=== PATIENT | female | born 1965 | race Caucasian/White ===

== ENCOUNTER → 2017-01-16 | Outpatient (REF) | payer OTHER ==
[~2017-01-16] MED LIST: /LEVE75TA PO; IBUP200C10 PO; PERCOCET PO; TYLE325T5 PO
[2017-01-16 16:31] LABS: BASO # 0.1 10^3/uL (0.0-0.2); BASO % 0.7 % (0.0-1.0); EOS # 0.2 10^3/uL (0.0-0.50); EOS % 2.5 % (0.0-3.0); IMMATURE GRANULOCYTE % 0.2 % (0-0); LYMPH # 1.9 10^3/uL (1.5-4.5); LYMPH % 21.1 % (24.0-44.0); MEAN CORPUSCULAR HEMOGLOBIN 30.6 pg (27.0-33.0); MEAN CORPUSCULAR HGB CONC 33.3 g/dl (32.0-36.5); MEAN CORPUSCULAR VOLUME 91.8 fl (80.0-96.0); MONO # 0.5 10^3/uL (0.0-0.8); MONO % 5.3 % (0.0-5.0); NEUTROPHILS # 6.2 10^3/uL (1.8-7.7); NEUTROPHILS % 70.2 % (36.0-66.0); PLATELET COUNT, AUTOMATED 257 10^3/uL (150-450); RED CELL DISTRIBUTION WIDTH 12.6 % (11.5-14.5); WHITE BLOOD COUNT 8.9 10^3/uL (4.0-10.0)
[2017-01-16 16:43] LABS: ALBUMIN 4.2 GM/DL (3.2-5.2); ALBUMIN/GLOBULIN RATIO 1.31 (1.00-1.93); ALKALINE PHOSPHATASE 72 U/L (45-117); ALT/SGPT 21 U/L (12-78); ANION GAP 8 MEQ/L (8-16); AST/SGOT 19 U/L (7-37); BILIRUBIN,TOTAL 0.4 MG/DL (0.2-1.0); BLOOD UREA NITROGEN 18 MG/DL (7-18); CALCIUM LEVEL 10.4 MG/DL (8.5-10.1); CARBON DIOXIDE LEVEL 26 MEQ/L (21-32); CHLORIDE LEVEL 107 MEQ/L (98-107); CHOLESTEROL LEVEL 280 MG/DL (<200); FREE T4 1.05 NG/DL (0.76-1.46); GLOMERULAR FILTRATION RATE > 60.0 (>51); GLUCOSE, FASTING 84 MG/DL (70-105); SODIUM LEVEL 141 MEQ/L (136-145); TOTAL PROTEIN 7.4 GM/DL (6.4-8.2); TRIGLYCERIDES LEVEL 156 MG/DL (<150)
[2017-01-18 09:40] LABS: VITAMIN B12 LEVEL 845 PG/ML
[2017-01-18 09:41] LABS: FOLATE > 24.0 NG/ML
== END ==
LOC: M SFHCADAM 09:00
PROVIDERS: ATTEND Physician Assistant Medical
DX: Z00.00 Encounter for general adult medical examination without abnormal findings (principal); E78.4 Other hyperlipidemia

== ENCOUNTER 2017-03-25 06:52 | Day surgery (SDC) | payer OTHER ==
[2017-03-25] MEDS ORDERED: PROPOFOL 200 MG/20 ML VIAL As Ordered (07:00)
[2017-03-25] MEDS ORDERED: LIDOCAINE 2% INJ 100 MG/5 ML SDV (FOR ANES.) As Ordered (07:00)
[2017-03-25] MEDS: NS 1,000 ML IV (07:08)
== END 2017-03-25 08:16 | disposition home or self-care (01) ==
LOC: M OPP 06:52
DX: Z12.11 Encounter for screening for malignant neoplasm of colon (principal); M19.90 Unspecified osteoarthritis, unspecified site; M41.9 Scoliosis, unspecified; G43.909 Migraine, unspecified, not intractable, without status migrainosus; R56.9 Unspecified convulsions; F17.210 Nicotine dependence, cigarettes, uncomplicated; Z79.899 Other long term (current) drug therapy; Z80.3 Family history of malignant neoplasm of breast
CPT/HCPCS: G0121

== ENCOUNTER → 2017-09-28 | Outpatient (CLI) | payer OTHER | LOC: M RAD 09:07 | DX: N63.10 Unspecified lump in the right breast, unspecified quadrant (principal) ==

== ENCOUNTER → 2017-11-04 | Outpatient (REF) | payer OTHER ==
[2017-11-04 13:43] LABS: BACTERIA, URINE AUTO NEGATIVE (NEGATIVE); MUCUS, URINE SMALL (NEGATIVE); RBC, URINE AUTO 2 /HPF (0-3); SQUAMOUS EPITHELIAL CELL UR AU 0 /HPF (0-6); WBC, URINE AUTO 18 /HPF (0-3)
[2017-11-04 15:52] LABS: CHLAMYDIA DNA AMPLIFICATION NEGATIVE (NEGATIVE); GC DNA AMPLIFICATION NEGATIVE (NEGATIVE)
== END ==
LOC: M LAB REF 13:01
DX: R30.0 Dysuria (principal)

== ENCOUNTER 2018-07-26 14:20 | Inpatient (IN) | payer OTHER ==
[~2018-07-26] VITALS: Ht 157.5 cm; Wt 65.6 kg
[~2018-07-26 14:20] MED LIST changes: -/LEVE75TA PO; +CALC1TAB40 PO; +CLAR10CA3 PO; +CLAR1TAB2 PO; -IBUP200C10 PO; +IBUP200C25 PO; +IRON65TA PO; +KEPP1TAB2 PO; +MELO7.5T7 PO; +MONT10TA2 PO; +MULT1TAB42 PO; +OSTETAB3 PO; +SUMA100T2 PO; +VITA-121 PO; +VITATAB11 PO; +ZONI50CA3 PO; +[UNRECOGNIZED DRUG - CODE] PO
[2018-07-26 15:19] LABS: BASO # 0.1 10^3/uL (0.0-0.2); BASO % 0.5 % (0.0-1.0); EOS # 0.1 10^3/uL (0.0-0.50); EOS % 0.7 % (0.0-3.0); HEMATOCRIT 43.6 % (36.0-47.0); HEMOGLOBIN 14.6 g/dl (12.0-15.5); LYMPH # 1.7 10^3/uL (1.5-4.5); LYMPH % 9.8 % (24.0-44.0); MEAN CORPUSCULAR HEMOGLOBIN 30.7 pg (27.0-33.0); MEAN CORPUSCULAR HGB CONC 33.5 g/dl (32.0-36.5); MEAN CORPUSCULAR VOLUME 91.6 fl (80.0-96.0); MONO % 5.6 % (0.0-5.0); NEUTROPHILS # 14.4 10^3/uL (1.8-7.7); NEUTROPHILS % 82.9 % (36.0-66.0); PLATELET COUNT, AUTOMATED 213 10^3/uL (150-450); RED BLOOD COUNT 4.76 10^6/uL (4.00-5.40); WHITE BLOOD COUNT 17.3 10^3/uL (4.0-10.0)
[2018-07-26 15:49] LABS: ALBUMIN 3.8 GM/DL (3.2-5.2); ALT/SGPT 26 U/L (12-78); BILIRUBIN,DIRECT < 0.1 MG/DL (0.0-0.2); BILIRUBIN,TOTAL 0.2 MG/DL (0.2-1.0); BLOOD UREA NITROGEN 15 MG/DL (7-18); CALCIUM LEVEL 9.6 MG/DL (8.5-10.1); CARBON DIOXIDE LEVEL 23 MEQ/L (21-32); CHLORIDE LEVEL 111 MEQ/L (98-107); CREATININE FOR GFR 1.32 MG/DL (0.55-1.30); GLOMERULAR FILTRATION RATE 45.2 (>51); GLUCOSE, FASTING 92 MG/DL (70-100); LIPASE 437 U/L (73-393); POTASSIUM SERUM 4.8 MEQ/L (3.5-5.1); SODIUM LEVEL 140 MEQ/L (136-145); TOTAL PROTEIN 7.1 GM/DL (6.4-8.2)
[2018-07-26] MEDS ORDERED: NS 1,000 ML IV ONE (17:15)
[2018-07-26] MEDS ORDERED: KETOROLAC 30 MG/ML VIAL (J1885) IV ONE (17:15)
[2018-07-26] MEDS ORDERED: TAMSULOSIN 0.4 MG CAP PO ONE (19:45)
[2018-07-26] MEDS ORDERED: MORPHINE 4 MG/ML 1ML VIAL/SYRINGE (J2270) IV ONE (21:15)
[2018-07-26] MEDS ORDERED: cefTRIAXone SOD 1 GM in D5W MINI-BAG PLUS 50 ML IV SCH (22:00)
[2018-07-26] MEDS ORDERED: MORPHINE 4 MG/ML 1ML VIAL/SYRINGE (J2270) IV PRN (22:00)
[2018-07-26] MEDS ORDERED: LORazepam 2 MG/ML VIAL (J2060) IV PRN (22:00)
[2018-07-26] MEDS ORDERED: ZONISAMIDE 50 MG CAP (ZONEGRAN) PO SCH (22:00)
[2018-07-26] MEDS ORDERED: ONDANSETRON 4MG/2ML VIAL (J2405) IV PRN (22:00)
[2018-07-26] MEDS ORDERED: LORA-674 PO (22:18)
[2018-07-26] MEDS ORDERED: FERR1TAB8 PO (22:18)
[2018-07-26] MEDS ORDERED: RA B1TAB2 PO (22:18)
[2018-07-26] MEDS ORDERED: D-10TAB3 PO (22:18)
[2018-07-26] MEDS ORDERED: VITMTA PO (22:18)
[2018-07-26] MEDS ORDERED: MELO7.5T35 PO (22:18)
--- NOTE | 2018-07-26 22:31 | HPEPDOC ---
General Date of Admission Jul 26, 2018 at 21:58 Date of Service: Jul 26, 2018 Chief Complaint The patient is a 52-year-old female admitted with a reason for visit of Ureteric Colic. Source: Patient, Old records Exam Limitations: No limitations Severity: Moderate History of Present Illness 52 year old female with Epilepsy, seasonal allergies presented to the ED with back pain for 3 days. The pain is located in the right middle to low back , dull aching in character, constantly present, 10/10 in intensity and with intermittent radiation to the right flank. The pain started 3 days ago . SHe was taking motrin for this and it was helping. Today the pain was very severe and the motrin did not help so came to the ED. In the ED She had an elevated WBC and 19 rbcs in urine and creatinine of 1.3 CT abdomen pelvis showed right proximal ureteric stone . Urology was contacted and she will be taken to the OR tomorrow. She is being admitted to the hospitalist service for JACQUELINE, obstructive uropathy due to right ureteric stone. Home Medications Scheduled Ascorbic Acid (Vitamin C with Jessica Hips) 1 Tab Tab, 1 TAB PO DAILY, (Reported) Calcium Carb/Mag Ox/Zinc Sulf (Wpatktt-Cuswfjtjx-Dzxv Tablet) 1 Tab Tab, 1 TAB PO DAILY, (Reported) Cholecalciferol (Vitamin D3) (Vitamin D3) 1,000 Unit Tablet, 1,000 UNIT PO DAILY, (Reported) Ferrous Sulfate (Ferrous Sulfate) 325 Mg Tablet, 325 MG PO DAILY, (Reported) Glucosamine/Chondr Natarajan A Sod (Osteo Bi-Flex Caplet) 1 Tab Tab, 1 TAB PO DAILY, (Reported) Loratadine (Loratadine) 10 Mg Tablet, 10 MG PO DAILY, (Reported) Montelukast Sodium (Montelukast Sodium) 10 Mg Tab, 10 MG PO DAILY, (Reported) Multivitamins (Thera M Plus Tablet) 1 Each Tablet, 1 TAB PO DAILY, (Reported) Vitamin B Complex (Vitamin B Complex) 1 Each Tablet, 1 TAB PO DAILY, (Reported) Zonisamide (Zonisamide) 50 Mg Cap, 150 MG PO QHS, (Reported) Scheduled PRN Meloxicam (Meloxicam) 7.5 Mg Tablet, 7.5 MG PO DAILY PRN for PAIN, (Reported) Sumatriptan Succinate (Sumatriptan Succinate) 100 Mg Tab, 100 MG PO DAILY PRN for MIGRAINE, (Reported) Allergies Coded Allergies: No Known Allergies (Unverified , 03/18/17) Past Medical History Medical History epilepsy, seasonal allergies, iron deficiency Surgical History appendectomy, total hysterectomy Family History Significant Family History: Other (epilesy in sister, mother, maternal aunts.) Social History * Smoker: current smoker Alcohol: Denies Drugs: denies A-FIB/CHADSVASC A-FIB History Current/History of A-Fib/PAF?: No Review of Systems Constitutional: Denies: Chills, Fever, Night Sweats Eyes: Denies: Pain, Vision change ENT: Denies: Head Aches, Ear Pain, Dysphagia Skin: Denies: Rash, Lesions, Breakdown Pulmonary: Denies: Dyspnea, Cough Cardiovascular: Denies: Chest Pain, Palpitations, Orthopnea, Paroxysmal Noc. Dyspnea, Lt Headedness Gastrointestinal: Reports: Abdominal Pain Genitourinary: Denies: Dysuria, Frequency, Incontinence, Retention Hematologic: Denies: Bruising, Bleeding Excessively Musculoskeletal: Reports: Back Pain Physical Examination General Exam: Positive: Alert, Cooperative, Mild Distress Eye Exam: Positive: PERRLA, Conjunctiva & lids normal, EOMI; Negative: Sclera icteric ENT Exam: Positive: Atraumatic, Mucous membr. moist/pink, Pharynx Normal Neck Exam: Positive: Supple; Negative: JVD, thyromegaly Chest Exam: Positive: Clear to auscultation, Normal air movement Heart Exam: Positive: Rate Normal, Regular Rhythm, Normal S1, Normal S2; Negative: Murmurs, Rubs Abdomen Exam: Positive: Normal bowel sounds, Soft, Tenderness (right CVA angle) Extremity Exam: Positive: Normal pulses; Negative: Clubbing, Cyanosis, Edema Skin Exam: Positive: Nl turgor and temperature; Negative: Breakdown, Lesion Vital Signs Vital Signs Date Time Temp Pulse Resp B/P (MAP) Pulse Ox O2 Delivery O2 Flow Rate FiO2 07/26/18 21:34 98.1 69 20 133/70 (91) 97 Room Air Laboratory Data Labs 24H Laboratory Tests 2 07/26/18 15:11: Immature Granulocyte % (Auto) 0.5, White Blood Count 17.3H, Red Blood Count 4.76, Hemoglobin 14.6, Hematocrit 43.6, Mean Corpuscular Volume 91.6, Mean Corpuscular Hemoglobin 30.7, Mean Corpuscular Hemoglobin Concent 33.5, Red Cell Distribution Width 12.5, Platelet Count 213, Neutrophils (%) (Auto) 82.9H, Lymphocytes (%) (Auto) 9.8L, Monocytes (%) (Auto) 5.6H, Eosinophils (%) (Auto) 0.7, Basophils (%) (Auto) 0.5, Neutrophils # (Auto) 14.4H, Lymphocytes # (Auto) 1.7, Monocytes # (Auto) 1.0H, Eosinophils # (Auto) 0.1, Basophils # (Auto) 0.1, Nucleated Red Blood Cells % (auto) 0.0, Anion Gap 6L, Glomerular Filtration Rate 45.2L, Calcium Level 9.6, Aspartate Amino Transf (AST/SGOT) 26, Alanine Garcia otransferase (ALT/SGPT) 26, Alkaline Phosphatase 95, Total Bilirubin 0.2, Direct Bilirubin < 0.1, Total Protein 7.1, Albumin 3.8, Albumin/Globulin Ratio 1.15, Lipase 437H 07/26/18 15:13: Urine Color STRAW, Urine Appearance CLEAR, Urine pH 5.0, Urine Specific [place] 1.009, Urine Protein NEGATIVE, Urine Glucose (UA) NEGATIVE, Urine Ketones NEGATIVE, Urine Blood 1+H, Urine Nitrite NEGATIVE, Urine Bilirubin NEGATIVE, Urine Urobilinogen 0.2, Urine Leukocyte Esterase NEGATIVE, Urine WBC (Auto) 1, Urine RBC (Auto) 19H, Urine Hyaline Casts (Auto) 0, Urine Bacteria (Auto) NEGATIVE, Urine Squamous Epithelial Cells 0, Urine Sperm (Auto) CBC/BMP Laboratory Tests 07/26/18 15:11 Red Blood Count 4.76, Mean Corpuscular Volume 91.6, Mean Corpuscular Hemoglobin 30.7, Mean Corpuscular Hemoglobin Concent 33.5, Red Cell Distribution Width 12.5, Neutrophils (%) (Auto) 82.9 H, Lymphocytes (%) (Auto) 9.8 L, Monocytes (%) (Auto) 5.6 H, Eosinophils (%) (Auto) 0.7, Basophils (%) (Auto) 0.5, Neutrophils # (Auto) 14.4 H, Lymphocytes # (Auto) 1.7, Monocytes # (Auto) 1.0 H, Eosinophils # (Auto) 0.1, Basophils # (Auto) 0.1 Assessment/Plan 52 year old female with Epilepsy, seasonal allergies presented to the ED with back pain for 3 days. The pain is located in the right middle to low back , dull aching in character, constantly present, 10/10 in intensity and with intermittent radiation to the right flank. The pain started 3 days ago . SHe was taking motrin for this and it was helping. Today the pain was very severe and the motrin did not help so came to the ED. In the ED She had an elevated WBC and 19 rbcs in urine and creatinine of 1.3 CT abdomen pelvis showed right proximal ureteric stone . Urology was contacted and she will be taken to the OR tomorrow. She is being admitted to the hospitalist service for JACQUELINE, obstructive uropathy due to right ureteric stone. JACQUELINE due to obstructive uropathy due to right proximal ureteric stone IVF, flomax, OR tomorrow by Urology for relief of obstruction NPO midnight. Dr Ye aware. Ceftriaxone pain control with morphine EKG and CXR. t be reviewed Epilepsy continue home meds Seasonal allergies continue montelukast and loratadine. Plan / VTE VTE Prophylaxis Ordered?: Yes HERB LEWIS MD Jul 26, 2018 22:31
[2018-07-26] MEDS: D5W/0.9% SODIUM CHLORIDE 1,000 ML IV SCH (22:53)
[2018-07-27 02:38] VITALS: BP 118/60
--- NOTE | 2018-07-27 07:45 | REP ---
Chest, single PA view: Comparison is 01/30/2013. The lung fowler are clear. Cardiac size is normal. The anish, mediastinum, skeletal structures are unremarkable. There is no interval change. Impression: Negative single PA view of the chest. Electronically Signed by Sidney Baum MD 07/27/2018 07:37 A
--- NOTE | 2018-07-27 07:46 | SMCUROLCON ---
Urology Consultation General Date of Consultation 07/27/18 Reason For Consultation This patient is seen for Ureteric Colic. History of Present Illness This is a 52 y/o F w/ a PMH significant for epilepsy, who presented to the ED yesterday evening w/ a 3 day history of right flank pain. She notes that the p ain became progressively worse, prompting her visit to the ER. A CT A/P was obtained in the ED and was notable for a 7-8mm obstructing proximal right ureteral stone as well as several stones in the right kidney measuring up to 1.3cm. Due to poor pain control she was admitted. She denies n/v. She denies fevers or chills. She denies dysuria. She has no previous history of kidney stones. Past Medical History Medical History epilepsy Surgical Hstory hysterectomy, appendectomy Medications Current Medications Current Medications Ceftriaxone Sodium 1 gm/ Dextrose 50 ml @ 100 mls/hr Q24H IV Last administered on 07/26/18at 22:53; Start 07/26/18 at 22:00 Dextrose/Sodium Chloride 1,000 ml @ 100 mls/hr Q10H IV Last administered on 07/26/18at 22:53; Start 07/26/18 at 22:00 Ferrous Sulfate (Ferrous Sulfate) 325 mg DAILY PO ; Start 07/27/18 at 09:00 Home Med (Med Rec Complete!) ASDIRECTED XX ; Start 07/26/18 at 22:30; Stop 07/26/18 at 22:30; Status DC Loratadine (Claritin) 10 mg DAILY PO ; Start 07/27/18 at 09:00 Lorazepam (Ativan) 2 mg Q4HP PRN IV seizure; Start 07/26/18 at 22:00 Montelukast Sodium (Singulair) 10 mg DAILY PO ; Start 07/27/18 at 09:00 Morphine Sulfate (Morphine Sulfate Inj) 2 mg Q2HP PRN IV BREAKTHROUGH PAIN Last administered on 07/27/18at 04:52; Start 07/26/18 at 22:00 Ondansetron HCl (ZOFRAN INJection) 4 mg Q6HP PRN IV NAUSEA OR VOMITING; Start 07/26/18 at 22:00 Tamsulosin HCl (Flomax) 0.4 mg DAILY PO ; Start 07/27/18 at 09:00 Zonisamide (Zonegran) 150 mg QHS PO Last administered on 07/26/18at 22:53; Start 07/26/18 at 22:00 Allergies Allergies: Coded Allergies: No Known Allergies (Unverified , 03/18/17) Review of Systems General: Denies: Fatigue, Malaise Constitutional: Denies: Fever, Chills, Sweats, Weakness, Malaise Skin: Denies: Rash, Lesions, Breakdown, Nail Changes Pulmonary: Denies: Dyspnea, Cough Cardiovascular: Denies Chest Pain, Denies Palpitations Genitourinary: Denies: Dysuria, Frequency, Incontinence, Hematuria Musculoskeletal: Reports: Back Pain (right flank pain) Neurological: Denies: Weakness, Numbness, Incoordination, Change in Speech Psych: Reports: Mood Normal; Denies: Anxiety, Depression Physical Examination General Exam: Alert, Cooperative Chest Exam: Normal air movement Heart Exam: Rate Normal, Regular Rhythm Abdomen Exam: Soft; No: Tenderness Skin Exam: Nl turgor and temperature; No: Rash, Breakdown Neuro Exam: Normal Speech Psych Exam: Mental status NL, Mood NL Vital Signs/I&O Vital Signs Date Time Temp Pulse Resp B/P (MAP) Pulse Ox O2 Delivery O2 Flow Rate FiO2 07/27/18 04:52 16 07/27/18 02:38 97.3 79 118/60 (79) 96 07/27/18 02:11 Room Air I&O- Last 24 Hours up to 6 AM 07/27/18 06:00 Intake Total 0 ml Output Total 200 ml Balance -200 ml Laboratory Data 24H Labs Laboratory Tests 2 07/26/18 15:11: Immature Granulocyte % (Auto) 0.5, White Blood Count 17.3H, Red Blood Count 4.76, Hemoglobin 14.6, Hematocrit 43.6, Mean Corpuscular Volume 91.6, Mean Corpuscular Hemoglobin 30.7, Mean Corpuscular Hemoglobin Concent 33.5, Red Cell Distribution Width 12.5, Platelet Count 213, Neutrophils (%) (Auto) 82.9H, Lymphocytes (%) (Auto) 9.8L, Monocytes (%) (Auto) 5.6H, Eosinophils (%) (Auto) 0.7, Basophils (%) (Auto) 0.5, Neutrophils # (Auto) 14.4H, Lymphocytes # (Auto) 1.7, Monocytes # (Auto) 1.0H, Eosinophils # (Auto) 0.1, Basophils # (Auto) 0.1, Nucleated Red Blood Cells % (auto) 0.0, Anion Gap 6L, Glomerular Filtration Rate 45.2L, Calcium Level 9.6, Aspartate Amino Transf (AST/SGOT) 26, Alanine Aminotransferase (ALT/SGPT) 26, Alkaline Phosphatase 95, Total Bilirubin 0.2, Direct Bilirubin < 0.1, Total Protein 7.1, Albumin 3.8, Albumin/Globulin Ratio 1.15, Lipase 437H 07/26/18 15:13: Urine Color STRAW, Urine Appearance CLEAR, Urine pH 5.0, Urine Specific [place] 1.009, Urine Protein NEGATIVE, Urine Glucose (UA) NEGATIVE, Urine Ketones NEGATIVE, Urine Blood 1+H, Urine Nitrite NEGATIVE, Urine Bilirubin NEGATIVE, Urine Urobilinogen 0.2, Urine Leukocyte Esterase NEGATIVE, Urine WBC (Auto) 1, Urine RBC (Auto) 19H, Urine Hyaline Casts (Auto) 0, Urine Bacteria (Auto) NEGATIVE, Urine Squamous Epithelial Cells 0, Urine Sperm (Auto) CBC/BMP Laboratory Tests 07/26/18 15:11 Red Blood Count 4.76, Mean Corpuscular Volume 91.6, Mean Corpuscular Hemoglobin 30.7, Mean Corpuscular Hemoglobin Concent 33.5, Red Cell Distribution Width 12.5, Neutrophils (%) (Auto) 82.9 H, Lymphocytes (%) (Auto) 9.8 L, Monocytes (%) (Auto) 5.6 H, Eosinophils (%) (Auto) 0.7, Basophils (%) (Auto) 0.5, Neutrophils # (Auto) 14.4 H, Lymphocytes # (Auto) 1.7, Monocytes # (Auto) 1.0 H, Eosinophils # (Auto) 0.1, Basophils # (Auto) 0.1 Assessment This is a 52 y/o F w/ a proximal obstructing right ureteral stone and right kidney stones, admitted for poor pain control. Her WBC was elevated to 17.3 and her Cr bumped to 1.3 from a baseline of 0.8. She is afebrile. Her UA appears negative for infection. I recommended taking her to the OR today for cystoscopy, right ureteroscopy w/ laser lithotripsy, and right ureteral stent placement. After a discussion of the risks and benefits, informed consent was signed. Plan - informed consent signed for cystoscopy, right ureteroscopy w/ laser lithotripsy, and right ureteral stent placement - keep NPO - OR later today - assuming pain is better controlled postop she can be discharged home KAYLYNN CLARKE MD Jul 27, 2018 07:45
[2018-07-27 08:00] VITALS: BP 119/71
[2018-07-27] MEDS: D5W/0.9% SODIUM CHLORIDE 1,000 ML IV SCH (08:07)
[2018-07-27 08:12] LABS: BASO # 0.1 10^3/uL (0.0-0.2); BASO % 0.5 % (0.0-1.0); EOS # 0.1 10^3/uL (0.0-0.50); EOS % 1.5 % (0.0-3.0); HEMATOCRIT 38.6 % (36.0-47.0); HEMOGLOBIN 12.7 g/dl (12.0-15.5); LYMPH # 1.6 10^3/uL (1.5-4.5); LYMPH % 17.2 % (24.0-44.0); MEAN CORPUSCULAR HEMOGLOBIN 30.5 pg (27.0-33.0); MEAN CORPUSCULAR HGB CONC 32.9 g/dl (32.0-36.5); MEAN CORPUSCULAR VOLUME 92.6 fl (80.0-96.0); MONO # 0.6 10^3/uL (0.0-0.8); MONO % 6.2 % (0.0-5.0); NEUTROPHILS % 74.3 % (36.0-66.0); PLATELET COUNT, AUTOMATED 177 10^3/uL (150-450); RED BLOOD COUNT 4.17 10^6/uL (4.00-5.40); WHITE BLOOD COUNT 9.4 10^3/uL (4.0-10.0)
[2018-07-27 08:18] LABS: CALCIUM LEVEL 8.5 MG/DL (8.5-10.1); CREATININE FOR GFR 1.32 MG/DL (0.55-1.30); GLOMERULAR FILTRATION RATE 45.2 (>51); POTASSIUM SERUM 4.2 MEQ/L (3.5-5.1)
[2018-07-27] MEDS ORDERED: MONTELUKAST 10 MG TAB PO SCH (09:00)
[2018-07-27] MEDS ORDERED: TAMSULOSIN 0.4 MG CAP PO SCH (09:00)
[2018-07-27] MEDS ORDERED: LORATADINE 10 MG TAB PO SCH (09:00)
[2018-07-27] MEDS ORDERED: FERROUS SULFATE 325MG TAB PO SCH (09:00)
[2018-07-27] MEDS ORDERED: CONRAY-60 60% 50ML VIAL (Q9961) As Ordered ONE (10:50)
[2018-07-27] MEDS ORDERED: fentaNYL 100 MCG/2 ML INJECTION (J3010) As Ordered ONE (10:53)
[2018-07-27] MEDS ORDERED: MIDAZOLAM INJ 2 MG/2 ML VIAL (J2250) As Ordered ONE (10:53)
[2018-07-27] MEDS ORDERED: PROPOFOL 200 MG/20 ML VIAL As Ordered ONE (10:54)
[2018-07-27] MEDS ORDERED: LIDOCAINE 2% INJ 100 MG/5 ML SDV (FOR ANES.) As Ordered ONE (10:56)
[2018-07-27] MEDS ORDERED: ONDANSETRON 4MG/2ML VIAL (J2405) As Ordered ONE (10:57)
[2018-07-27] MEDS ORDERED: dexameTHASONE 4 MG/ML 1ML VIAL (J1100) As Ordered ONE (10:57)
[2018-07-27] MEDS ORDERED: ceFAZolin 2 GM/D5W 50 ML IV BAG (J0690 PER 500MG) As Ordered ONE (11:23)
[2018-07-27] MEDS ORDERED: PHENYLephrine HCL 500 MCG/5 ML (100MCG/ML) SYRINGE (J2370) As Ordered ONE (11:54)
[2018-07-27] MEDS ORDERED: ePHEDrine SULFATE 25 MG/5 ML(5MG/ML) SYRINGE As Ordered ONE (11:54)
[2018-07-27] MEDS ORDERED: PERCOCET 5MG/325MG TAB PO PRN (13:15)
[2018-07-27] MEDS ORDERED: fentaNYL 100 MCG/2 ML INJECTION (J3010) IV PRN (13:15)
[2018-07-27] MEDS ORDERED: MORPHINE 10 MG/ML 1ML VIAL (J2270) IV PRN (13:15)
[2018-07-27] MEDS ORDERED: ONDANSETRON 4MG/2ML VIAL (J2405) IV PRN (13:15)
[2018-07-27] MEDS ORDERED: LR 1,000 ML IV SCH (13:15)
[2018-07-27 13:50] VITALS: BP 111/62
[2018-07-27 14:20] VITALS: BP 112/62
[2018-07-27] MEDS ORDERED: IBUP200C25 PO (14:23)
--- NOTE | 2018-07-27 15:14 | REP ---
RETROGRADE PYELOGRAM: Three views. HISTORY: Stent placement. 12 seconds of fluoroscopy time is reported. FINDINGS: A sequence of three last image hold fluoroscopically obtained spot radiographs of the abdomen document ureteral cannulation, contrast injection, and double pigtail ureteral stent placement. No laterality markers are visible. Electronically Signed by Nikita Trivedi MD 07/27/2018 04:49 P
--- NOTE | 2018-07-27 15:53 | DSES ---
DATE OF ADMISSION: 07/27/2018 DATE OF DISCHARGE: 07/27/2018 PRIMARY CARE PROVIDER: Ava Gomes at [facility] UROLOGIST: Dr. Gilmer Ye PRINCIPAL DIAGNOSES: 1. Right ureteral colic secondary to renal stone. 2. Acute kidney injury. HISTORY: Amalia Calderón is a 52-year-old who previously has been seen by MARY ANN Garcia in the [facility], most recently 01/14/2017. The patient has missed all of her appointments since then. She has a history of a seizure disorder and is followed by Dr. 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 She presented with a renal stone. HOSPITAL COURSE: It looks like the patient was taken to the operating room for the urological procedure, the operative note is not available yet. I think that she was going for laser lithotripsy and right ureteral stent placement. After the procedure, urology felt that she could be discharged home. The patient is eager for discharge, so we will discharge her. Per nursing staff, urology advised just Tylenol or Motrin for analgesics. SIGNIFICANT LABORATORIES TODAY: Initial white count is 17.3, repeat white count is 9.4, hemoglobin 12.7, platelets are 177, electrolytes are unremarkable. Creatinine is 1.3. Baseline creatinine is 0.8. DISPOSITION: The patient is discharged home to followup with Ava Gomes in the [facility] in 1 to [address] Ye of urology per his office. Activity and diet is as tolerated. MEDICATIONS: - over the counter ibuprofen 600 mg of ibuprofen every 6 hours as needed for pain She will continue her home medications, which look to be: - zonisamide 150 mg at bedtime - sumatriptan 100 mg for migraines - Singulair 10 mg daily - loratadine 10 mg daily - over the counter vitamin C, calcium, vitamin D, ferrous sulfate, Osteo Biflex and B complex She looks to be on meloxicam 7.5 mg daily as needed. I have asked her to hold this until repeat lab work can be done in the office for checking her renal function.
--- NOTE | 2018-07-28 07:35 | ECGEPIP ---
[facility] Test Date: 2018-07-27 Pat Name: DONNIE PALOMARES Department: Room: [place] [address] Gender: Female [employer]: : 1965 Requested By: HERB LEWIS Order Number: [id number] Reading MD: Paul Oneill Measurements Intervals [place] Rate: 71 P: 73 MO: 131 QRS: 65 QRSD: 93 T: 40 QT: 387 QTc: 422 Interpretive Statements Normal sinus rhythm Low QRS complex voltage in the limb leads Nonspecific ST-T wave abnormalities Comparison tracing not on file Electronically Signed on 07-28-2018 7:34:44 EDT by Paul Oneill
--- NOTE | 2018-07-28 15:12 | REP ---
NONCONTRAST CT, STONE PROTOCOL: REASON: Right flank pain, hematuria. COMPARISON: 01/30/2013 There are numerable calculi in the right renal pelvis and in multiple calices. There is a 6 mm size calcification in the proximal right ureter. Just distal to that there is a 4 mm size calcification within the proximal ureter and just distal to that, there is an additional 4 mm size calcification in the right ureter. Distal to that there is an additional 5 mm sized intraureteral calcification at the level of the iliac crest. Numerable calcification is seen throughout the right hemipelvis most of which appear vascular and most of which were seen on the prior exam. Due to the close proximity to the distal right ureter, I cannot say for certain whether ir not there are additional intraureteral calculi by this exam. There are no urinary bladder calculi. There are numerable bilateral pelvic phleboliths. There are no left-sided nephroliths. There is mild right-sided hydronephrosis and proximal hydroureter. Limited evaluation of the solid intra-abdominal organs show on gross abnormalities or significant changes from the prior exam. There are no choleliths. Limited evaluation of the pancreas and adrenal glands show no significant changes from the prior exam. There is a low density benign left adrenal gland nodule status quo. Limited evaluation of the bowel loops and their mesenteries show no gross abnormalities. There is no free fluid or free air in the abdomen or pelvis. There is no change in the osseous structures. The lung bases are clear and unchanged. IMPRESSION: Multiple right-sided nephroliths with mild hydronephrosis and perinephric stranding seen in conjunction with multiple right ureteroliths and other potential ureteroliths as described above. Other findings as described above. Electronically Signed by Deangelo Nicolas DO 07/28/2018 04:04 P
--- NOTE | 2018-07-28 15:30 | RO ---
DATE OF PROCEDURE: 07/27/2018 PREPROCEDURE DIAGNOSES: Right kidney and ureteral stones. POSTPROCEDURE DIAGNOSES: Right kidney and ureteral stones. PROCEDURE: Cystoscopy, right ureteroscopy with laser lithotripsy and basket extraction of stones, right retrograde pyelogram with intraoperative interpretation of images, right ureteral stent placement. SURGEON: Gilmer Ye MD NAILER OPERATOR: None. ANESTHESIA: General. OPERATIVE INDICATIONS: This is a 52-year-old female who presented to the emergency room yesterday with a 3-day history of right-sided flank pain, which had become progressively worse. A CAT scan was obtained. It was notable for a 7 mm obstructing proximal ureteral stone as well as additional stones in the right kidney measuring up to 1.2 cm. She was brought to the operative room today for the above-listed procedure. DESCRIPTION OF PROCEDURE: Patient brought to the operating room, and general anesthesia was inducted. Prophylactic antibiotics were infused. She was then placed in dorsal lithotomy position and prepped and draped in the usual sterile fashion. A rigid cystoscope was inserted into the urethral meatus and advanced to the bladder. A guidewire was advanced up the right collecting system. I then went up the right collecting system with a short-semirigid ureteroscope, and no stones were seen within the distal to mid ureter. I then withdrew the short-semirigid ureteroscope and advanced a ureteral access sheath up the right collecting system. I went up the access sheath with the flexible ureteroscope, and within the proximal ureter, the 7-mm stone was seen. The stone was fragmented into smaller pieces using a 272 micron laser fiber. All the fragments were removed using a basket. I then went into the kidney, and there were stones in the lower pole of the kidney measuring up to 1.2 cm. All those stones were fragmented as well using a laser, and then all the fragments were removed using a basket. Of note, there were some additional stone fragments that I could not reach very well with the basket in the lower pole, and these were fragmented into tiny pieces using a dusting setting. Once done, there were no stone fragments remaining inside the kidney that the patient could not pass on her own. A retrograde pyelogram was performed. It was notable for moderate right hydronephrosis, no extravasation. I then withdrew the ureteroscope along with access sheath, and no stones were seen within the ureter. I then utilized the wire to advance a #6-Peruvian x 22-32 cm JJ ureteral stent up to right collecting system. The wire was then removed, and there were adequate curls of the stent in the right renal pelvis and in the bladder. The bladder was emptied of all fluids, and this marked conclusion of procedure. The patient was then taken out of dorsal lithotomy position, awakened from anesthesia, and transferred to recovery room in stable condition ESTIMATED BLOOD LOSS: 5 mL. COMPLICATIONS: None. SPECIMENS: Kidney stone fragments. PLAN: I will schedule the patient to followup in the clinic in approximately 1 or 2 weeks for stent removal. Of note, I will get a KUB prior to removing the stent. JOVANNA
== END 2018-07-27 15:05 | disposition home or self-care (01) | DRG 443 ==
LOC: M ED 14:20 → M ED INP 21:58 → M PED 07-27 02:15 → INTOOBSV 07-27 07:23 → OBSVTOIN 07-27 07:23
PROVIDERS: ADMIT Internal Medicine Nephrology; ATTEND Internal Medicine Nephrology
PROC: 0TC08ZZ Extirpation of Matter from Right Kidney, Via Natural or Artificial Opening Endoscopic (ICD-10-PCS; 2018-07-27)
PROC: 0T768DZ Dilation of Right Ureter with Intraluminal Device, Via Natural or Artificial Opening Endoscopic (ICD-10-PCS; 2018-07-27)
PROC: 0TC68ZZ Extirpation of Matter from Right Ureter, Via Natural or Artificial Opening Endoscopic (ICD-10-PCS; principal; 2018-07-27 13:30)
DX: N13.2 Hydronephrosis with renal and ureteral calculous obstruction (principal); N17.9 Acute kidney failure, unspecified; G40.909 Epilepsy, unspecified, not intractable, without status epilepticus; J30.2 Other seasonal allergic rhinitis; Z79.899 Other long term (current) drug therapy

== ENCOUNTER → 2018-08-04 | Outpatient (REF) | payer OTHER ==
[~2018-08-04] MED LIST changes: +D-10TAB3 PO; +FERR1TAB8 PO; +LORA-674 PO; +MELO7.5T35 PO; +RA B1TAB2 PO; +VITMTA PO
[2018-08-04 17:44] LABS: BASO # 0.1 10^3/uL (0.0-0.2); BASO % 0.7 % (0.0-1.0); EOS # 0.4 10^3/uL (0.0-0.50); EOS % 3.7 % (0.0-3.0); HEMOGLOBIN 14.7 g/dl (12.0-15.5); LYMPH # 2.6 10^3/uL (1.5-4.5); LYMPH % 21.8 % (24.0-44.0); MEAN CORPUSCULAR HEMOGLOBIN 30.9 pg (27.0-33.0); MEAN CORPUSCULAR HGB CONC 33.4 g/dl (32.0-36.5); MEAN CORPUSCULAR VOLUME 92.6 fl (80.0-96.0); MONO # 0.7 10^3/uL (0.0-0.8); MONO % 5.9 % (0.0-5.0); NEUTROPHILS # 7.9 10^3/uL (1.8-7.7); NEUTROPHILS % 67.5 % (36.0-66.0); PLATELET COUNT, AUTOMATED 296 10^3/uL (150-450); RED BLOOD COUNT 4.75 10^6/uL (4.00-5.40); WHITE BLOOD COUNT 11.8 10^3/uL (4.0-10.0)
[2018-08-04 17:55] LABS: ALBUMIN 3.8 GM/DL (3.2-5.2); BILIRUBIN,TOTAL 0.4 MG/DL (0.2-1.0); CALCIUM LEVEL 9.5 MG/DL (8.5-10.1); CHOLESTEROL RISK RATIO 4.959 (<5); CREATININE FOR GFR 1.23 MG/DL (0.55-1.30); POTASSIUM SERUM 4.1 MEQ/L (3.5-5.1); THYROID STIMULATING HORMONE 1.77 uIU/ML (0.358-3.740); TOTAL PROTEIN 7.1 GM/DL (6.4-8.2)
== END ==
LOC: M SFHCADAM 14:37
PROVIDERS: ATTEND Physician Assistant Medical
DX: Z00.00 Encounter for general adult medical examination without abnormal findings (principal); E78.49 Other hyperlipidemia

== ENCOUNTER → 2018-08-12 | Outpatient (CLI) | payer OTHER ==
--- NOTE | 2018-08-12 09:10 | REP ---
Clinical: Kidney stone. Technique: Single supine view of the abdomen and pelvis. Comparison: None. Findings: Right ureteral stent is identified in satisfactory position. Multiple right renal calculi are identified and possible right ureteral calculi noted. Calcifications within the pelvis may in part represent phleboliths. The bowel gas pattern is nonspecific. Impression: Right ureteral stent. Continued evidence for right intrarenal calculi and possible right ureteral calculi Electronically Signed by Rodolfo Silverio MD 08/12/2018 09:02 A
== END ==
LOC: M SMT 08:29
PROVIDERS: ATTEND Urology
DX: N20.0 Calculus of kidney (principal)

== ENCOUNTER → 2018-09-30 | Outpatient (CLI) | payer OTHER ==
[~2018-09-30] MED LIST changes: +ZONI50CA11 PO; -ZONI50CA3 PO
--- NOTE | 2018-09-30 13:57 | REP ---
REASON FOR EXAM: Renal disease. PRIORS: None. Multiple ultrasonographic images of the right kidney show the right kidney to measure 11.1 x 4.9 x 4.1 cm. The renal cortical echoes are mildly diffusely increased, however, there is preservation of corticomedullary differentiation. In the lower pole of the right kidney there is a tiny echogenic focus measuring 5 mm. This does not cast an acoustic shadow. There are no cystic or solid masses. There is no hydronephrosis. Multiple ultrasonographic images of the left kidney show the left kidney to measure 10.2 x 4.6 x 4.6 cm. The renal cortical echoes are mildly diffusely increased, however, the cortical medullary differentiation is preserved. There no cystic or solid masses. There is no hydronephrosis. Imaging of the urinary bladder was obtained solely for the purpose of assessing uro-jet phenomena at the UV junction. Color Doppler imaging shows UV junction uro-jet phenomena bilaterally. Grossly there is no urinary bladder abnormality. IMPRESSION: Echogenic focus seen inferior pole right kidney possibly reflecting non-shadowing calculi. Consider noncontrast enhanced stone protocol CT if clinically relevant. Mildly increased renal cortical echoes as described above consistent with medical renal disease. Electronically Signed by Deangelo Nicolas DO 09/30/2018 02:21 P
== END ==
LOC: M RAD 11:02
PROVIDERS: ATTEND Physician Assistant Medical
DX: N18.3 Chronic kidney disease, stage 3 (moderate) (principal)

== ENCOUNTER → 2018-10-28 | Outpatient (REF) | payer OTHER ==
[~2018-10-28] MED LIST changes: -ZONI50CA11 PO; +ZONI50CA3 PO
[2018-10-28 13:15] LABS: BASO # 0.1 10^3/uL (0.0-0.2); BASO % 0.8 % (0.0-1.0); EOS # 0.2 10^3/uL (0.0-0.5); EOS % 2.1 % (0.0-3.0); HEMATOCRIT 45.5 % (36.0-47.0); HEMOGLOBIN 15.1 g/dl (12.0-15.5); LYMPH # 3.7 10^3/uL (1.5-5.0); MEAN CORPUSCULAR HEMOGLOBIN 30.8 pg (27.0-33.0); MEAN CORPUSCULAR HGB CONC 33.2 g/dl (32.0-36.5); MEAN CORPUSCULAR VOLUME 92.7 fl (80.0-96.0); MONO # 0.8 10^3/uL (0.0-0.8); MONO % 6.9 % (0.0-5.0); NEUTROPHILS # 6.1 10^3/uL (1.5-8.5); NEUTROPHILS % 55.8 % (36.0-66.0); PLATELET COUNT, AUTOMATED 260 10^3/uL (150-450); RED BLOOD COUNT 4.91 10^6/uL (4.00-5.40)
[2018-10-28 13:24] LABS: ALBUMIN 4.5 GM/DL (3.2-5.2); BILIRUBIN,TOTAL 0.3 MG/DL (0.2-1.0); CALCIUM LEVEL 10.1 MG/DL (8.5-10.1); CHOLESTEROL RISK RATIO 5.135 (<5); CREATININE FOR GFR 1.16 MG/DL (0.55-1.30); GLOMERULAR FILTRATION RATE 52.4 (>51); TOTAL PROTEIN 7.1 GM/DL (6.4-8.2)
== END ==
LOC: M LABNEURO 09:04
PROVIDERS: ATTEND Psychiatry & Neurology Neurology
DX: R56.9 Unspecified convulsions (principal)

== ENCOUNTER → 2019-02-17 | Outpatient (CLI) | payer OTHER ==
[~2019-02-17] MED LIST changes: +ZONI50CA11 PO; -ZONI50CA3 PO
--- NOTE | 2019-02-17 12:21 | REPPI ---
KUB ABDOMEN AND PELVIS: KUB films of the abdomen and pelvis performed and compared to a prior study of 08/12/2018. Previously noted calculi in the lower pole of the right kidney has decreased in size and number. A calcification is seen at that location measuring 7.4 mm. Punctate calcification is seen just superior to that. There are basket calcifications and phleboliths again seen in the pelvis unchanged. Bowel gas pattern is normal. There is curvature of the thoracolumbar spine convex to the right. IMPRESSION: Calculi lower pole right kidney have decreased in size and number as discussed above. Electronically Signed by Sidney Shankar MD 02/18/2019 03:17 P
== END ==
LOC: M PLALAB 09:20
PROVIDERS: ATTEND Nurse Practitioner Family
DX: N20.0 Calculus of kidney (principal)

== ENCOUNTER 2019-11-13 02:36 | Emergency (ER) | payer OTHER ==
[~2019-11-13] VITALS: Ht 154.9 cm; Wt 65.9 kg
[~2019-11-13 02:36] MED LIST changes: -MONT10TA2 PO; +MONT10TA4 PO
[2019-11-13] MEDS ORDERED: MELO7.5T35 (02:51)
[2019-11-13] MEDS ORDERED: LAMO100T3 (02:51)
[2019-11-13] MEDS ORDERED: ACETAMINOPHEN TAB 650MG DOSE (2X325MG) PO ONE (03:15)
[2019-11-13] MEDS ORDERED: ONDANSETRON 4 MG ORAL DISINTEGRATING TAB PO ONE (03:15)
--- NOTE | 2019-11-13 03:38 | REPVR ---
PROCEDURE INFORMATION: Exam: CT Head Without Contrast Exam date and time: 11/13/2019 3:22 AM Age: 53 years old Clinical indication: Pain; Headache; Additional info: Blunt trauma TECHNIQUE: Imaging protocol: Computed tomography of the head without contrast. Radiation optimization: All CT scans at this facility use at least one of these dose optimization techniques: automated exposure control; mA and/or kV adjustment per patient size (includes targeted exams where dose is matched to clinical indication); or iterative reconstruction. COMPARISON: CT Head without contrast 01/30/2013 4:57 PM FINDINGS: Brain: Normal. No hemorrhage. Unremarkable white matter. No mass effect. Cerebral ventricles: No ventriculomegaly. Bones/joints: Unremarkable. No acute fracture. Paranasal sinuses: Visualized sinuses are unremarkable. No fluid levels. Mastoid air cells: Visualized mastoid air cells are well aerated. Soft tissues: Unremarkable. IMPRESSION: No acute intracranial abnormality. Electronically signed by: Fredy Beal On 11/13/2019 03:38:17 AM
[2019-11-13 04:30] VITALS: BP 124/73
== END 2019-11-13 04:37 | disposition home or self-care (01) ==
LOC: M ED 02:36
DX: S06.0X9A Concussion with loss of consciousness of unspecified duration, initial encounter (principal); W22.8XXA Striking against or struck by other objects, initial encounter; Y92.89 Other specified places as the place of occurrence of the external cause; Y93.89 Activity, other specified; Y99.0 Civilian activity done for income or pay; G40.909 Epilepsy, unspecified, not intractable, without status epilepticus; F17.200 Nicotine dependence, unspecified, uncomplicated; Z79.899 Other long term (current) drug therapy
CPT/HCPCS: 70450; 99284; Q0162

== ENCOUNTER → 2020-03-04 | Outpatient (CLI) | payer OTHER ==
[~2020-03-04] MED LIST changes: +LAMO100T3; +MELO7.5T35; +MONT10TA10 PO; -MONT10TA4 PO
--- NOTE | 2020-03-04 09:00 | REPPI ---
INDICATION: N20.0 RENAL LITHIASIS COMPARISON: 02/17/2019 TECHNIQUE: Supine view of the abdomen and pelvis. FINDINGS: Evaluation is somewhat limited although right intrarenal calculi are again suspected. Calcifications in the pelvis are stable/chronic and consistent with phleboliths and vascular calcifications. Bowel gas pattern is nonspecific. Skeletal structures are intact. No foreign body. No obvious organomegaly. IMPRESSION: Nonobstructing right renal calculi. Further evaluation of the urinary tract system is limited due to overlying bowel gas. <Electronically signed by Rodolfo Silverio > 03/04/20 [id number]
== END ==
LOC: M PLAIMG 08:30
PROVIDERS: ATTEND Nurse Practitioner Family
DX: N20.0 Calculus of kidney (principal)

== ENCOUNTER → 2021-03-27 | Outpatient (CLI) | payer OTHER ==
[~2021-03-27] MED LIST changes: -MONT10TA10 PO; +MONT10TA97 PO
[2021-03-27 16:21] LABS: RHEUMATOID FACTOR QUANT < 10.0 IU/ML (<15.0)
[2021-03-27 17:08] LABS: VITAMIN B12 LEVEL 1446 PG/ML
[2021-03-27 17:09] LABS: FOLATE > 24.0 NG/ML
== END ==
LOC: M LAB 14:37
PROVIDERS: ATTEND Psychiatry & Neurology Neurology
DX: R56.9 Unspecified convulsions (principal); R41.3 Other amnesia

== ENCOUNTER → 2021-04-04 | Outpatient (CLI) | payer OTHER | LOC: M WHC 08:17 | PROVIDERS: ATTEND Pediatrics | DX: Z12.31 Encounter for screening mammogram for malignant neoplasm of breast (principal); M85.851 Other specified disorders of bone density and structure, right thigh; M85.852 Other specified disorders of bone density and structure, left thigh ==

== ENCOUNTER → 2021-11-11 | Outpatient (CLI) | payer OTHER | LOC: M RAD 08:17 | PROVIDERS: ATTEND Pediatrics | DX: R74.01 Elevation of levels of liver transaminase levels (principal); K76.89 Other specified diseases of liver; K80.20 Calculus of gallbladder without cholecystitis without obstruction; N20.0 Calculus of kidney ==

== ENCOUNTER → 2022-01-12 | Outpatient (REF) | payer OTHER ==
[2022-01-12 17:47] LABS: FERRITIN 508.5 NG/ML (7.3-270.7)
[2022-01-12 17:49] LABS: ALBUMIN 4.1 G/DL (3.2-5.2); BILIRUBIN,DIRECT 0.2 MG/DL (<0.4); BILIRUBIN,TOTAL 0.6 MG/DL (0.3-1.2)
== END ==
LOC: M LAB REF 16:19
PROVIDERS: ATTEND Pediatrics
DX: R74.01 Elevation of levels of liver transaminase levels (principal); R77.8 Other specified abnormalities of plasma proteins

== ENCOUNTER → 2022-03-12 | Outpatient (CLI) | payer OTHER | LOC: M RAD 10:44 | PROVIDERS: ATTEND Physician Assistant | DX: N20.0 Calculus of kidney (principal); N28.1 Cyst of kidney, acquired ==

== ENCOUNTER → 2022-04-06 | Outpatient (CLI) | payer OTHER ==
[2022-04-06 08:59] LABS: BASO # 0.1 10^3/uL (0.0-0.2); BASO % 0.8 % (0.0-1.0); EOS # 0.2 10^3/uL (0.0-0.5); EOS % 1.9 % (0.0-3.0); HEMATOCRIT 45.5 % (36.0-47.0); HEMOGLOBIN 14.9 g/dl (12.0-15.5); LYMPH # 1.8 10^3/uL (1.5-5.0); LYMPH % 21.2 % (24.0-44.0); MEAN CORPUSCULAR HEMOGLOBIN 30.2 pg (27.0-33.0); MEAN CORPUSCULAR HGB CONC 32.7 g/dl (32.0-36.5); MEAN CORPUSCULAR VOLUME 92.3 fl (80.0-96.0); MONO # 0.5 10^3/uL (0.0-0.8); MONO % 5.7 % (2.0-8.0); PLATELET COUNT, AUTOMATED 210 10^3/uL (150-450); RED BLOOD COUNT 4.93 10^6/uL (4.00-5.40); WHITE BLOOD COUNT 8.5 10^3/uL (4.0-10.0)
[2022-04-06 09:06] LABS: APPEARANCE, URINE HAZY (CLEAR); BACTERIA, URINE AUTO NEGATIVE (NEGATIVE); BILIRUBIN, URINE AUTO NEGATIVE (NEGATIVE); BLOOD, URINE BLOOD NEGATIVE (NEGATIVE); COLOR, URINE YELLOW (YELLOW); GLUCOSE, URINE (UA) AUTO NEGATIVE (NEGATIVE); KETONE, URINE AUTO NEGATIVE (NEGATIVE); LEUKOCYTE ESTERASE, URINE AUTO NEGATIVE (NEGATIVE); NITRITE, URINE AUTO NEGATIVE (NEGATIVE); PROTEIN, URINE AUTO NEGATIVE (NEGATIVE); RBC, URINE AUTO 5 /HPF (0-3); SPECIFIC GRAVITY URINE AUTO 1.009 (1.002-1.035); SQUAMOUS EPITHELIAL CELL UR AU 1 /HPF (0-6); UROBILINOGEN, URINE AUTO 0.2 mg/dL (0.0-2.0); WBC, URINE AUTO 3 /HPF (0-3)
[2022-04-06 09:20] LABS: BLOOD UREA NITROGEN 14 MG/DL (9-23); CALCIUM LEVEL 9.8 MG/DL (8.5-10.1); CARBON DIOXIDE LEVEL 26 MMOL/L (20-31); CHLORIDE LEVEL 108 MMOL/L (98-107); CREATININE FOR GFR 0.84 MG/DL (0.55-1.30); GLOMERULAR FILTRATION RATE > 60.0 (>51); GLUCOSE, FASTING 104 MG/DL (60-100); POTASSIUM SERUM 4.6 MMOL/L (3.5-5.1); SODIUM LEVEL 141 MMOL/L (136-145)
== END ==
LOC: M RAD 08:05
PROVIDERS: ATTEND Physician Assistant
DX: Z01.818 Encounter for other preprocedural examination (principal); R94.31 Abnormal electrocardiogram [ECG] [EKG]

== ENCOUNTER → 2022-04-10 | Outpatient (CLI) | payer OTHER ==
[~2022-04-10] MED LIST changes: +ATOR40TA75 PO; +CALC1TAB63 PO; +CRAN200C PO; +D 50CAP3 PO; -LAMO100T3; +LAMO100T3 PO; +LAMO25TA4 PO; -MELO7.5T35; +OXYB10TA23 PO; +VITA100024 PO; +VITA200016 PO; +ZONI50CA PO; +ZYRT10TA12 PO; +[UNRECOGNIZED DRUG - CODE] PO
[2022-04-10 10:37] LABS: APPEARANCE, URINE CLOUDY (CLEAR); BACTERIA, URINE AUTO NEGATIVE (NEGATIVE); BILIRUBIN, URINE AUTO NEGATIVE (NEGATIVE); BLOOD, URINE BLOOD NEGATIVE (NEGATIVE); CALCIUM OXALATE CRYSTALS LARGE; COLOR, URINE AMBER (YELLOW); GLUCOSE, URINE (UA) AUTO NEGATIVE (NEGATIVE); KETONE, URINE AUTO NEGATIVE (NEGATIVE); LEUKOCYTE ESTERASE, URINE AUTO 2+ (NEGATIVE); MUCUS, URINE SMALL (NEGATIVE); NITRITE, URINE AUTO NEGATIVE (NEGATIVE); PROTEIN, URINE AUTO NEGATIVE (NEGATIVE); RBC, URINE AUTO 21 /HPF (0-3); SQUAMOUS EPITHELIAL CELL UR AU 1 /HPF (0-6); WBC, URINE AUTO 29 /HPF (0-3)
== END ==
LOC: M LAB 09:20
PROVIDERS: ATTEND Physician Assistant
DX: Z01.818 Encounter for other preprocedural examination (principal)

== ENCOUNTER → 2022-04-13 | Outpatient (CLI) | payer OTHER | LOC: M LABSMTC 08:13 | PROVIDERS: ATTEND Anesthesiology | DX: Z01.812 Encounter for preprocedural laboratory examination (principal) ==

== ENCOUNTER 2022-04-16 07:00 | Day surgery (SDC) | payer OTHER ==
[~2022-04-16] VITALS: Ht 152.4 cm; Wt 72.8 kg
[~2022-04-16 07:00] MED LIST changes: +ceFAZolin SOD 2 GM in IV 1 EA IV ONE
[2022-04-16] MEDS ORDERED: LR 1,000 ML IV SCH (08:30)
[2022-04-16] MEDS ORDERED: LIDOCAINE 2% 100MG/5ML SDV (FOR ANES.) As Ordered ONE (08:46)
[2022-04-16] MEDS ORDERED: propofoL 200 MG/20 ML VIAL As Ordered ONE (08:46)
[2022-04-16] MEDS ORDERED: ACETAMINOPHEN 1000MG 100ML IV BAG As Ordered ONE (09:45)
[2022-04-16] MEDS ORDERED: FLOM0.4C39 PO (09:49)
[2022-04-16] MEDS ORDERED: PERC5TAB12 PO (09:49)
[2022-04-16] MEDS ORDERED: ePHEDrine SULFATE 25 MG/5 ML(5MG/ML) SYRINGE As Ordered ONE (09:50)
[2022-04-16] MEDS ORDERED: ONDANSETRON 4MG 2ML VIAL As Ordered ONE (09:52)
[2022-04-16 10:23] VITALS: BP 122/74
== END 2022-04-16 11:05 | disposition home or self-care (01) ==
LOC: M SDC 07:00
PROVIDERS: ATTEND Urology
DX: N20.0 Calculus of kidney (principal); E78.5 Hyperlipidemia, unspecified; G43.909 Migraine, unspecified, not intractable, without status migrainosus; G40.909 Epilepsy, unspecified, not intractable, without status epilepticus; Z79.899 Other long term (current) drug therapy; F17.210 Nicotine dependence, cigarettes, uncomplicated
CPT/HCPCS: 50590; 74018; J0131; J0690; J2405

== ENCOUNTER 2022-04-30 06:20 | Day surgery (SDC) | payer OTHER ==
[~2022-04-30] VITALS: Ht 152.4 cm; Wt 72.8 kg
[~2022-04-30 06:20] MED LIST changes: +FLOM0.4C39 PO; +PERC5TAB12 PO
[2022-04-30] MEDS ORDERED: fentaNYL 100 MCG/2 ML INJECTION As Ordered ONE (06:53)
[2022-04-30] MEDS ORDERED: MIDAZOLAM INJ 2MG/2ML VIAL As Ordered ONE (06:53)
[2022-04-30] MEDS ORDERED: ONDANSETRON 4MG 2ML VIAL As Ordered ONE (07:15)
[2022-04-30] MEDS ORDERED: LIDOCAINE 2% 100MG/5ML SDV (FOR ANES.) As Ordered ONE (07:15)
[2022-04-30] MEDS ORDERED: propofoL 200 MG/20 ML VIAL As Ordered ONE (07:15)
[2022-04-30] MEDS ORDERED: ACETAMINOPHEN 1000MG 100ML IV BAG As Ordered ONE (07:41)
[2022-04-30] MEDS ORDERED: PERC5TAB12 PO (07:47)
[2022-04-30] MEDS ORDERED: ePHEDrine SULFATE 25 MG/5 ML(5MG/ML) SYRINGE As Ordered ONE (07:52)
[2022-04-30 08:45] VITALS: BP 120/76
== END 2022-04-30 08:58 | disposition home or self-care (01) ==
LOC: M SDC 06:20
PROVIDERS: ATTEND Urology
DX: N20.0 Calculus of kidney (principal); E78.5 Hyperlipidemia, unspecified; G40.909 Epilepsy, unspecified, not intractable, without status epilepticus; M41.9 Scoliosis, unspecified; J30.2 Other seasonal allergic rhinitis; F17.210 Nicotine dependence, cigarettes, uncomplicated; Z79.899 Other long term (current) drug therapy
CPT/HCPCS: 50590; 74018; J0131; J0690; J2250; J2405; J3010

== ENCOUNTER → 2022-05-12 | Outpatient (CLI) | payer OTHER ==
[~2022-05-12] MED LIST changes: -ceFAZolin SOD 2 GM in IV 1 EA IV ONE
== END ==
LOC: M RAD 12:04
PROVIDERS: ATTEND Urology
DX: N20.0 Calculus of kidney (principal)

== ENCOUNTER → 2022-05-15 | Outpatient (REF) | payer OTHER ==
[2022-05-15 16:55] LABS: ALBUMIN 4.1 G/DL (3.2-5.2); ALKALINE PHOSPHATASE 126 U/L (46-116); ALT/SGPT 40 U/L (7.0-40); AST/SGOT 29 U/L (<34); BILIRUBIN,TOTAL 0.5 MG/DL (0.3-1.2); BLOOD UREA NITROGEN 13 MG/DL (9-23); CALCIUM LEVEL 9.7 MG/DL (8.5-10.1); CARBON DIOXIDE LEVEL 28 MMOL/L (20-31); CHLORIDE LEVEL 107 MMOL/L (98-107); CHOLESTEROL LEVEL 165 MG/DL (<200); CHOLESTEROL RISK RATIO 2.59 (<5); CREATININE FOR GFR 0.97 MG/DL (0.55-1.30); GLOMERULAR FILTRATION RATE > 60.0 (>51); GLUCOSE, FASTING 91 MG/DL (60-100); HDL CHOLESTEROL 63.5 MG/DL (>40); LDL CHOLESTEROL 83.5 MG/DL (<100); NON-HDL-C 101.5 MG/DL; POTASSIUM SERUM 4.7 MMOL/L (3.5-5.1); SODIUM LEVEL 141 MMOL/L (136-145); TRIGLYCERIDES LEVEL 90 MG/DL (<150)
[2022-05-15 16:58] LABS: FERRITIN 492.9 NG/ML (7.3-270.7)
[2022-05-15 17:14] LABS: HEPATITIS B SURFACE ANTIGEN NEGATIVE (NEGATIVE)
== END ==
LOC: M LAB REF 15:59
PROVIDERS: ATTEND Pediatrics
DX: R77.8 Other specified abnormalities of plasma proteins (principal); E78.5 Hyperlipidemia, unspecified; R74.01 Elevation of levels of liver transaminase levels; N20.0 Calculus of kidney

== ENCOUNTER → 2022-09-18 | Outpatient (CLI) | payer OTHER | LOC: M RAD 09:31 | PROVIDERS: ATTEND Pediatrics | DX: Z12.2 Encounter for screening for malignant neoplasm of respiratory organs (principal); R91.8 Other nonspecific abnormal finding of lung field ==

== ENCOUNTER → 2022-11-13 | Outpatient (CLI) | payer OTHER ==
[~2022-11-13] MED LIST changes: +LORA-1041 PO; -LORA-674 PO
== END ==
LOC: M RAD 08:10
PROVIDERS: ATTEND Physician Assistant
DX: N20.0 Calculus of kidney (principal)

== ENCOUNTER → 2022-11-16 | Outpatient (REF) | payer MEDICAID, OTHER ==
[2022-11-16 18:15] LABS: APPEARANCE, URINE CLOUDY (CLEAR); BACTERIA, URINE AUTO 3+ (NEGATIVE); BILIRUBIN, URINE AUTO NEGATIVE (NEGATIVE); BLOOD, URINE BLOOD 2+ (NEGATIVE); CALCIUM OXALATE CRYSTALS SMALL; COLOR, URINE AMBER (YELLOW); GLUCOSE, URINE (UA) AUTO NEGATIVE (NEGATIVE); KETONE, URINE AUTO NEGATIVE (NEGATIVE); LEUKOCYTE ESTERASE, URINE AUTO 3+ (NEGATIVE); NITRITE, URINE AUTO POSITIVE (NEGATIVE); PROTEIN, URINE AUTO 1+ mg/dL (NEGATIVE); RBC, URINE AUTO 40 /HPF (0-3); SPECIFIC GRAVITY URINE AUTO 1.014 (1.002-1.035); SQUAMOUS EPITHELIAL CELL UR AU 0 /HPF (0-6); UROBILINOGEN, URINE AUTO 0.2 mg/dL (0.0-2.0); WBC, URINE AUTO 175 /HPF (0-3)
== END ==
LOC: M SMT 17:02
PROVIDERS: ATTEND Physician Assistant
DX: R30.0 Dysuria (principal)

== ENCOUNTER → 2022-12-14 | Outpatient (CLI) | payer OTHER | LOC: M WHC 08:53 | PROVIDERS: ATTEND Pediatrics | DX: Z12.31 Encounter for screening mammogram for malignant neoplasm of breast (principal); Z80.3 Family history of malignant neoplasm of breast; R92.333 Mammographic heterogeneous density, bilateral breasts ==

== ENCOUNTER 2022-12-21 21:53 | Emergency (ER) | payer OTHER ==
[~2022-12-21] VITALS: Ht 152.4 cm; Wt 70.0 kg
[2022-12-21 22:20] VITALS: BP 146/74; TEMP 98.8; O2SAT 99
[2022-12-21 22:26] LABS: BASO # 0.1 10^3/uL (0.0-0.2); BASO % 0.7 % (0.0-1.0); EOS # 0.2 10^3/uL (0.0-0.5); EOS % 1.6 % (0.0-3.0); HEMATOCRIT 39.6 % (36.0-47.0); HEMOGLOBIN 13.4 g/dl (12.0-15.5); LYMPH # 2.4 10^3/uL (1.5-5.0); LYMPH % 19.7 % (24.0-44.0); MEAN CORPUSCULAR HEMOGLOBIN 30.9 pg (27.0-33.0); MEAN CORPUSCULAR HGB CONC 33.8 g/dl (32.0-36.5); MEAN CORPUSCULAR VOLUME 91.5 fl (80.0-96.0); MONO # 0.6 10^3/uL (0.0-0.8); MONO % 4.9 % (2.0-8.0); NEUTROPHILS # 8.8 10^3/uL (1.5-8.5); NEUTROPHILS % 72.8 % (36.0-66.0); PLATELET COUNT, AUTOMATED 220 10^3/uL (150-450); RED BLOOD COUNT 4.33 10^6/uL (4.00-5.40); WHITE BLOOD COUNT 12.1 10^3/uL (4.0-10.0)
[2022-12-21 22:45] LABS: LIPASE 31 U/L (12-53)
[2022-12-21 22:47] LABS: ALBUMIN 4.1 G/DL (3.2-5.2); ALKALINE PHOSPHATASE 95 U/L (46-116); ALT/SGPT 46 U/L (7.0-40); AST/SGOT 26 U/L (<34); BILIRUBIN,DIRECT 0.2 MG/DL (<0.4); BILIRUBIN,TOTAL 0.6 MG/DL (0.3-1.2); BLOOD UREA NITROGEN 14 MG/DL (9-23); CALCIUM LEVEL 9.5 MG/DL (8.5-10.1); CARBON DIOXIDE LEVEL 26 MMOL/L (20-31); CHLORIDE LEVEL 106 MMOL/L (98-107); CK-MB VALUE MASS < 1.0 NG/ML (<3.6); CPK CREATINE PHOSPHOKINASE 130 U/L (34-145); CREATININE FOR GFR 0.94 MG/DL (0.55-1.30); GLOMERULAR FILTRATION RATE > 60.0 (>51); GLUCOSE, FASTING 92 MG/DL (60-100); MB/CK RELATIVE INDEX 0.76 (< OR =4); POTASSIUM SERUM 3.9 MMOL/L (3.5-5.1); SODIUM LEVEL 140 MMOL/L (136-145); TOTAL PROTEIN 6.8 G/DL (5.7-8.2)
[2022-12-21] MEDS ORDERED: KETOROLAC 60MG 2ML VIAL IM ONE (23:10)
[2022-12-21] MEDS ORDERED: IBUP-1022 PO (23:19)
== END 2022-12-22 | disposition home or self-care (01) ==
LOC: EDBD 21:53 → M ED 21:53
DX: R07.9 Chest pain, unspecified (principal); E78.5 Hyperlipidemia, unspecified; I10 Essential (primary) hypertension; G40.909 Epilepsy, unspecified, not intractable, without status epilepticus; F17.200 Nicotine dependence, unspecified, uncomplicated; Z79.02 Long term (current) use of antithrombotics/antiplatelets; Z79.83 Long term (current) use of bisphosphonates; Z79.810 Long term (current) use of selective estrogen receptor modulators (SERMs); Z79.899 Other long term (current) drug therapy
CPT/HCPCS: 71045; 80048; 80076; 82550; 82553; 83690; 85025; 93005; 93041; 96372; 99284; J1885

== ENCOUNTER → 2023-02-11 | Outpatient (CLI) | payer OTHER ==
[~2023-02-11] MED LIST changes: +IBUP-1022 PO
[2023-02-11 11:59] LABS: ALBUMIN 4.2 G/DL (3.2-5.2); ALKALINE PHOSPHATASE 85 U/L (46-116); ALT/SGPT 29 U/L (7.0-40); AST/SGOT 23 U/L (<34); BILIRUBIN,TOTAL 0.6 MG/DL (0.3-1.2); BLOOD UREA NITROGEN 13 MG/DL (9-23); CALCIUM LEVEL 10.5 MG/DL (8.5-10.1); CARBON DIOXIDE LEVEL 27 MMOL/L (20-31); CHLORIDE LEVEL 108 MMOL/L (98-107); CHOLESTEROL LEVEL 193 MG/DL (<200); CHOLESTEROL RISK RATIO 2.49 (<5); CREATININE FOR GFR 0.95 MG/DL (0.55-1.30); GLOMERULAR FILTRATION RATE > 60.0 (>51); GLUCOSE, FASTING 99 MG/DL (60-100); HDL CHOLESTEROL 77.5 MG/DL (>40); LDL CHOLESTEROL 90.7 MG/DL (<100); NON-HDL-C 115.5 MG/DL; POTASSIUM SERUM 4.8 MMOL/L (3.5-5.1); SODIUM LEVEL 139 MMOL/L (136-145); TOTAL PROTEIN 7.1 G/DL (5.7-8.2); TRIGLYCERIDES LEVEL 124 MG/DL (<150)
[2023-02-11 12:01] LABS: FERRITIN 487.5 NG/ML (7.3-270.7); THYROID STIMULATING HORMONE 1.177 uIU/ML (0.55-4.78)
== END ==
LOC: M LAB 11:01
PROVIDERS: ATTEND Pediatrics
DX: E78.5 Hyperlipidemia, unspecified (principal); R77.8 Other specified abnormalities of plasma proteins

== ENCOUNTER → 2023-05-03 | Outpatient (CLI) | payer OTHER | LOC: M RAD 08:01 | PROVIDERS: ATTEND Pediatrics | DX: R91.8 Other nonspecific abnormal finding of lung field (principal) ==

== ENCOUNTER → 2023-05-10 | Outpatient (CLI) | payer OTHER | LOC: M PLAIMG 08:05 → M RAD 08:05 | PROVIDERS: ATTEND Physician Assistant | DX: N20.0 Calculus of kidney (principal) ==

== ENCOUNTER → 2023-05-21 | Outpatient (REF) | payer OTHER ==
[2023-05-21 19:03] LABS: FERRITIN 379.9 NG/ML (7.3-270.7); TOTAL 25(OH) VITAMIN D 37.4 NG/ML (20.0-100.0)
[2023-05-21 19:05] LABS: ALBUMIN 4.1 G/DL (3.2-5.2); ALKALINE PHOSPHATASE 100 U/L (46-116); ALT/SGPT 27 U/L (7.0-40); AST/SGOT 22 U/L (<34); BILIRUBIN,TOTAL 0.4 MG/DL (0.3-1.2); BLOOD UREA NITROGEN 11 MG/DL (9-23); CALCIUM LEVEL 10.2 MG/DL (8.5-10.1); CARBON DIOXIDE LEVEL 24 MMOL/L (20-31); CHLORIDE LEVEL 110 MMOL/L (98-107); CREATININE FOR GFR 0.89 MG/DL (0.55-1.30); GLOMERULAR FILTRATION RATE > 60.0 (>51); GLUCOSE, FASTING 84 MG/DL (60-100); PHOSPHORUS LEVEL 3.2 MG/DL (2.5-4.9); POTASSIUM SERUM 4.2 MMOL/L (3.5-5.1); PTH INTACT 31.5 PG/ML (18.5-88.0); SODIUM LEVEL 142 MMOL/L (136-145); TOTAL PROTEIN 6.9 G/DL (5.7-8.2)
== END ==
LOC: M LAB REF 17:32
PROVIDERS: ATTEND Pediatrics
DX: R77.8 Other specified abnormalities of plasma proteins (principal); E83.52 Hypercalcemia

== ENCOUNTER → 2023-08-11 | Outpatient (CLI) | payer OTHER ==
[~2023-08-11] MED LIST changes: +LOSA25TA13 PO; +MULT-90 PO; +VITA100C15 PO
[2023-08-11 10:49] LABS: HEMATOCRIT 44.1 % (36.0-47.0); HEMOGLOBIN 14.6 g/dl (12.0-15.5); MEAN CORPUSCULAR HEMOGLOBIN 29.7 pg (27.0-33.0); MEAN CORPUSCULAR HGB CONC 33.1 g/dl (32.0-36.5); MEAN CORPUSCULAR VOLUME 89.6 fl (80.0-96.0); PLATELET COUNT, AUTOMATED 271 10^3/uL (150-450); RED BLOOD COUNT 4.92 10^6/uL (4.00-5.40); WHITE BLOOD COUNT 8.3 10^3/uL (4.0-10.0)
[2023-08-11 11:00] LABS: APPEARANCE, URINE HAZY (CLEAR); BACTERIA, URINE AUTO 1+ (NEGATIVE); BILIRUBIN, URINE AUTO NEGATIVE (NEGATIVE); BLOOD, URINE BLOOD 1+ (NEGATIVE); CALCIUM OXALATE CRYSTALS SMALL; COLOR, URINE YELLOW (YELLOW); GLUCOSE, URINE (UA) AUTO NEGATIVE (NEGATIVE); KETONE, URINE AUTO NEGATIVE (NEGATIVE); LEUKOCYTE ESTERASE, URINE AUTO 3+ (NEGATIVE); MUCUS, URINE SMALL (NEGATIVE); NITRITE, URINE AUTO NEGATIVE (NEGATIVE); PROTEIN, URINE AUTO NEGATIVE (NEGATIVE); RBC, URINE AUTO 3 /HPF (0-3); SQUAMOUS EPITHELIAL CELL UR AU 1 /HPF (0-6); UROBILINOGEN, URINE AUTO 0.2 mg/dL (0.0-2.0); WBC, URINE AUTO 24 /HPF (0-3)
[2023-08-11 11:19] LABS: BLOOD UREA NITROGEN 12 MG/DL (9-23); CALCIUM LEVEL 9.8 MG/DL (8.5-10.1); CARBON DIOXIDE LEVEL 22 MMOL/L (20-31); CHLORIDE LEVEL 111 MMOL/L (98-107); CREATININE FOR GFR 0.95 MG/DL (0.55-1.30); GLOMERULAR FILTRATION RATE > 60.0 (>51); GLUCOSE, FASTING 103 MG/DL (60-100); POTASSIUM SERUM 4.9 MMOL/L (3.5-5.1); SODIUM LEVEL 141 MMOL/L (136-145)
== END ==
LOC: M LAB 09:47
PROVIDERS: ATTEND Urology
DX: Z01.818 Encounter for other preprocedural examination (principal); N39.3 Stress incontinence (female) (male); N39.0 Urinary tract infection, site not specified

== ENCOUNTER 2023-08-20 05:59 | Day surgery (SDC) | payer OTHER ==
[~2023-08-20] VITALS: Ht 152.4 cm; Wt 806.0 kg
[2023-08-20] MEDS: ceFAZolin SOD 2 GM in IV 1 EA IV ONE (07:29)
[2023-08-20] MEDS ORDERED: METOCLOPRAMIDE INJ 10MG/2ML VIAL As Ordered ONE (07:48)
[2023-08-20] MEDS ORDERED: LIDOCAINE 2% 100MG/5ML SDV (FOR ANES.) As Ordered ONE (07:48)
[2023-08-20] MEDS ORDERED: ePHEDrine SULFATE 25 MG/5 ML(5MG/ML) SYRINGE As Ordered ONE (07:48)
[2023-08-20] MEDS ORDERED: propofoL 200 MG/20 ML VIAL As Ordered ONE (07:48)
[2023-08-20] MEDS ORDERED: ONDANSETRON 4MG 2ML VIAL As Ordered ONE (07:48)
[2023-08-20] MEDS ORDERED: ACETAMINOPHEN 1000MG 100ML IV BAG As Ordered ONE (07:48)
[2023-08-20] MEDS ORDERED: MIDAZOLAM INJ 2MG/2ML VIAL As Ordered ONE (07:48)
[2023-08-20] MEDS ORDERED: fentaNYL 100 MCG/2 ML INJECTION As Ordered ONE (07:48)
[2023-08-20] MEDS: LIDOCAINE 2% 5ML JELLY UROJET As Ordered ONE (07:52)
[2023-08-20] MEDS ORDERED: fentaNYL 100 MCG/2 ML INJECTION IV PRN (08:05)
[2023-08-20] MEDS ORDERED: LR 1,000 ML IV SCH (08:05)
[2023-08-20] MEDS ORDERED: ONDANSETRON 4MG 2ML VIAL IV PRN (08:05)
[2023-08-20 09:02] VITALS: BP 113/63; TEMP 96.7; O2SAT 97
== END 2023-08-20 09:21 | disposition home or self-care (01) ==
LOC: M SDC 05:59
PROVIDERS: ATTEND Urology
DX: N39.3 Stress incontinence (female) (male) (principal); I10 Essential (primary) hypertension; E78.5 Hyperlipidemia, unspecified; G43.909 Migraine, unspecified, not intractable, without status migrainosus; J30.2 Other seasonal allergic rhinitis; Z79.899 Other long term (current) drug therapy
CPT/HCPCS: 51715; 52275; J0131; J0690; J1100; J2250; J2405; J2765; J3010

== ENCOUNTER → 2023-11-09 | Outpatient (CLI) | payer OTHER, MEDICAID | LOC: M RAD 12:41 | PROVIDERS: ATTEND Physician Assistant | DX: N20.2 Calculus of kidney with calculus of ureter (principal) ==

== ENCOUNTER → 2023-11-18 | Outpatient (CLI) | payer OTHER | LOC: M PLAIMG 10:18 | PROVIDERS: ATTEND Urology | DX: N20.0 Calculus of kidney (principal); D35.02 Benign neoplasm of left adrenal gland; K80.20 Calculus of gallbladder without cholecystitis without obstruction; K76.89 Other specified diseases of liver ==

== ENCOUNTER → 2023-12-30 | Outpatient (REF) | payer OTHER, MEDICAID ==
[2023-12-30 14:09] LABS: BLOOD UREA NITROGEN 14 MG/DL (9-23); CALCIUM LEVEL 10.4 MG/DL (8.5-10.1); CARBON DIOXIDE LEVEL 27 MMOL/L (20-31); CHLORIDE LEVEL 110 MMOL/L (98-107); CHOLESTEROL LEVEL 186 MG/DL (<200); CREATININE FOR GFR 0.98 MG/DL (0.55-1.30); GLOMERULAR FILTRATION RATE > 60.0 (>51); GLUCOSE, FASTING 90 MG/DL (60-100); HDL CHOLESTEROL 54.6 MG/DL (>40); LDL CHOLESTEROL 94.2 MG/DL (<100); NON-HDL-C 131.4 MG/DL; POTASSIUM SERUM 4.2 MMOL/L (3.5-5.1); SODIUM LEVEL 142 MMOL/L (136-145); TRIGLYCERIDES LEVEL 186 MG/DL (<150)
[2023-12-30 14:23] LABS: CREATININE, URINE 258.4 MG/DL; MAU/CREAT RATIO 13.9 MCG/MG (0.0-30.0)
== END ==
LOC: M LAB REF 12:16
PROVIDERS: ATTEND Pediatrics
DX: I10 Essential (primary) hypertension (principal); E78.5 Hyperlipidemia, unspecified

== ENCOUNTER → 2024-04-06 | Outpatient (CLI) | payer OTHER | LOC: M RAD 09:05 | PROVIDERS: ATTEND Urology | DX: N20.0 Calculus of kidney (principal) ==

== ENCOUNTER → 2024-05-01 | Outpatient (CLI) | payer OTHER ==
[2024-05-01 10:03] LABS: BASO # 0.1 10^3/uL (0.0-0.2); BASO % 0.8 % (0.0-1.0); EOS # 0.1 10^3/uL (0.0-0.5); EOS % 1.6 % (0.0-3.0); HEMATOCRIT 43.5 % (36.0-47.0); HEMOGLOBIN 14.6 g/dl (12.0-15.5); LYMPH % 23.4 % (24.0-44.0); MEAN CORPUSCULAR HEMOGLOBIN 30.1 pg (27.0-33.0); MEAN CORPUSCULAR HGB CONC 33.6 g/dl (32.0-36.5); MEAN CORPUSCULAR VOLUME 89.7 fl (80.0-96.0); MONO # 0.5 10^3/uL (0.0-0.8); MONO % 5.6 % (2.0-8.0); NEUTROPHILS # 5.7 10^3/uL (1.5-8.5); NEUTROPHILS % 68.2 % (36.0-66.0); PLATELET COUNT, AUTOMATED 237 10^3/uL (150-450); RED BLOOD COUNT 4.85 10^6/uL (4.00-5.40); WHITE BLOOD COUNT 8.3 10^3/uL (4.0-10.0)
[2024-05-01 10:23] LABS: ALKALINE PHOSPHATASE 96 U/L (35-104); ALT/SGPT 25 U/L (7.0-40); AST/SGOT 20 U/L (<34); BILIRUBIN,TOTAL 0.7 MG/DL (0.3-1.2); BLOOD UREA NITROGEN 15 MG/DL (9-23); CALCIUM LEVEL 9.9 MG/DL (8.5-10.1); CARBON DIOXIDE LEVEL 22 MMOL/L (20-31); CHLORIDE LEVEL 109 MMOL/L (98-107); CREATININE FOR GFR 0.95 MG/DL (0.55-1.30); GLOMERULAR FILTRATION RATE > 60.0 (>51); GLUCOSE, FASTING 99 MG/DL (60-100); POTASSIUM SERUM 4.3 MMOL/L (3.5-5.1); SODIUM LEVEL 140 MMOL/L (136-145); TOTAL PROTEIN 6.9 G/DL (5.7-8.2)
[2024-05-01 10:34] LABS: FOLATE > 24.00 NG/ML (>5.4)
[2024-05-01 10:35] LABS: TOTAL 25(OH) VITAMIN D 50.9 NG/ML (20.0-100.0)
[2024-05-01 11:30] LABS: VITAMIN B12 LEVEL 1197 PG/ML (211-911)
== END ==
LOC: M LAB 08:39
PROVIDERS: ATTEND Psychiatry & Neurology Neurology
DX: R56.9 Unspecified convulsions (principal); E53.8 Deficiency of other specified B group vitamins; E55.9 Vitamin D deficiency, unspecified

== ENCOUNTER → 2024-05-22 | Outpatient (CLI) | payer OTHER | LOC: M RAD 06:53 | PROVIDERS: ATTEND Pediatrics | DX: R91.8 Other nonspecific abnormal finding of lung field (principal) ==

== ENCOUNTER → 2024-11-10 | Outpatient (REF) | payer OTHER ==
[~2024-11-10] MED LIST changes: -FLOM0.4C39 PO; -IBUP-1022 PO; +IBUP600T42 PO; +LAMO-18 PO; -LAMO25TA4 PO; +TAMS-18 PO; -VITA100024 PO; +VITA100051 PO
[2024-11-10 14:01] LABS: CREATININE, URINE 81.0 MG/DL; MALB URINE SIEMENS 19.0 MG/L; MAU/CREAT RATIO 23.4 MCG/MG (0.0-30.0)
[2024-11-10 14:35] LABS: ALT/SGPT 23.0 U/L (7.0-40); AST/SGOT 22.0 U/L (<34); CALCIUM LEVEL 10.3 MG/DL (8.5-10.1); CARBON DIOXIDE LEVEL 26.0 MMOL/L (20-31); CHLORIDE LEVEL 107.0 MMOL/L (98-107); CHOLESTEROL LEVEL 184.0 MG/DL (<200); CHOLESTEROL RISK RATIO 3.42 (<5); CREATININE FOR GFR 1.08 MG/DL (0.55-1.30); GLOMERULAR FILTRATION RATE 59.9 (>51); LDL CHOLESTEROL 98.7 MG/DL (<100); NON-HDL-C 130.3 MG/DL; POTASSIUM SERUM 4.4 MMOL/L (3.5-5.1); SODIUM LEVEL 141.0 MMOL/L (136-145); TRIGLYCERIDES LEVEL 158.0 MG/DL (<150)
== END ==
LOC: M LAB REF 12:38
PROVIDERS: ATTEND Pediatrics
DX: I10 Essential (primary) hypertension (principal); R77.8 Other specified abnormalities of plasma proteins

== ENCOUNTER → 2024-11-14 | Outpatient (CLI) | payer OTHER | LOC: M RAD 08:02 | PROVIDERS: ATTEND Urology | DX: N20.0 Calculus of kidney (principal) ==